=== PATIENT | female | born 2000 | race Two or more races ===

== ENCOUNTER → 2024-02-24 | Emergency (ER) | payer OTHER ==
[~2024-02-24] VITALS: Ht 162.6 cm; Wt 110.2 kg
[~2024-02-24] MED LIST: 0.9 % SODIUM CHLORIDE 1,000 ML IV SCH; FAMOTIDINE/PF 20 MG/2 ML VIAL IV PUSH ONE; FAMOTIDINE/PF 20 MG/2 ML VIAL ONE; MAG HYDROX/ALUMINUM HYD/SIMETH 30 ML BLIST.PACK PO ONE; METRONIDAZOLE/SODIUM CHLORIDE 500 MG/100 ML PIGGYBACK IV ONE; ONDANSETRON HCL 2 MG/ML VIAL IV ONE; ONDANSETRON HCL 2 MG/ML VIAL ONE
[2024-02-24 09:58] LABS: HEMATOCRIT 34.6 % (36.0-45.00); HEMOGLOBIN 11.5 g/dL (12.0-15.00); MEAN CELL VOLUME 80.4 fL (80.00-100.00); MEAN CORPUSCULAR HEMOGLOBIN 26.8 pg (27.00-32.0); MEAN CORPUSCULAR HGB CONC 33.3 g/dl (32.0-36.0); PLATELET COUNT 273 K/uL (150-450); RED BLOOD COUNT 4.31 M/uL (4.00-6.00)
[2024-02-24 10:40] LABS: PH,URINE 5.5 (5.0-8.0); URINE APPEARANCE Cloudy; URINE BILIRRUBIN Negative (NEGATIVE); URINE BLOOD Negative; URINE COLOR Yellow; URINE GLUCOSE Negative (NEGATIVE); URINE KETONE Negative (NEGATIVE); URINE LEUKOCYTE Large; URINE NITRATE Negative; URINE PROTEIN Negative (NEGATIVE)
[2024-02-24 10:48] LABS: URINE BACTERIA 7923.8 uL (0.0-1933); URINE EPITHELIAL CELLS 55.9 uL (0.0-38.8); URINE RBC 10.8 uL (0.0-20.8); URINE WBC 304.2 uL (0.0-23.2)
[2024-02-24 10:51] LABS: ALBUMIN 3.6 gm/dL (3.4-5.0); BILIRUBIN TOTAL 0.97 mg/dL (0.3-1.2); CREATININE SERUM 0.91 mg/dL (0.55-1.02); GFR 77.3; GLOBULINA 3.9 G/DL (2.4-3.5); POTASSIUM 3.77 mEq/L (3.5-5.1); TOTAL PROTEIN 7.5 gm/dL (6.4-8.2)
[2024-02-24 11:04] LABS: URINE CAST 1.37 uL (0.0-1.40)
== END | disposition home or self-care (01) ==
LOC: ER 08:49
PROVIDERS: Emergency Medicine
DX: A05.9 Bacterial foodborne intoxication, unspecified (principal); N39.0 Urinary tract infection, site not specified; Z20.822 Contact with and (suspected) exposure to COVID-19; Z88.8 Allergy status to other drugs, medicaments and biological substances

== ENCOUNTER 2024-03-01 16:36 | Outpatient (CLI) | payer OTHER | END 2024-03-01 16:45 | disposition home or self-care (01) | LOC: RAD 16:36 | PROVIDERS: ATTEND Internal Medicine | DX: M54.50 Low back pain, unspecified (principal) ==

== ENCOUNTER 2024-03-08 07:53 | Outpatient (CLI) | payer OTHER | END 2024-03-08 07:55 | disposition home or self-care (01) | LOC: TOM 07:53 | PROVIDERS: ATTEND Internal Medicine | DX: R10.9 Unspecified abdominal pain (principal) ==